=== PATIENT | female | born 1950 | race Caucasian/White ===

== ENCOUNTER 2016-08-02 11:33 | Day surgery (SDC) | payer OTHER ==
[~2016-08-02] VITALS: Ht 154.9 cm; Wt 78.1 kg
[2016-08-02 13:15] VITALS: Ht 154.9 cm; Wt 78.1 kg
[2016-08-02 14:02] VITALS: BP 191/77; PULSE 61; RESP 20
[2016-08-02] MEDS ORDERED: MIDAZOLAM 1 MG/ML 2 ML INJ ONE ×2 (14:57)
[2016-08-02] MEDS ORDERED: FENTAnyl 50 MCG/ML VIAL ONE (14:57)
[2016-08-02 15:19] VITALS: BP 127/61; PULSE 56; RESP 18
--- NOTE | 2016-08-02 20:49 | GILP ---
DATE OF PROCEDURE: NAME OF PROCEDURES 1. Esophagogastroduodenoscopy and biopsy. 2. Colonoscopy, biopsy and polypectomy. SURGEON: Tuyet Bee MD PREOPERATIVE DIAGNOSES: 1. Abdominal pain. 2. Positive occult blood in stool. POSTOPERATIVE DIAGNOSES 1. Small hiatal hernia. 2. Gastroesophageal reflux disease. 3. Gastritis with erosions. 4. Gastric mucosal biopsies were taken for Helicobacter pylori test. 5. Colonoscopy all the way to the cecum. 6. Two sigmoid colon polyps and one of them was removed using a snare and electrocautery and the an other one with biopsy forceps. 7. Internal hemorrhoids. INDICATION FOR THE PROCEDURE: Ms. Shayy Ayala is a 66-year-old female patient who had upper a bdominal pain not responding to therapy. The patient was also noted to have positive occult blood i n stool. Patient was scheduled for endoscopy and colonoscopy for further evaluation. The procedures and possible complications were well explained to the patient, she understood and con sented to the procedures. DESCRIPTION OF PROCEDURE: Under the influence of fentanyl and Versed, the gastroscope was carefully introduced into the esophagus. Under direct vision, it was advanced to the stomach, to the pylorus , into the duodenal bulb and descending duodenum. Findings: Esophagus: The patient had a small hiatal hernia and gastroesophageal reflux disease. Stomach: She had gastritis with erosions. Gastric mucosal biopsies were taken for H. pylori test. Duodenum: Normal. The colonoscope was carefully introduced into the rectum. Under direct vision, it was advanced all the way to the cecum. Findings: The patient had 2 sigmoid colon polyps and one of them was removed using the biopsy force ps and other one with the snare and electrocautery. The patient also had internal hemorrhoids. She tolerated the procedures very well and there was no complication from the procedures. At the en d of the procedures, she was awake with stable vital signs and she was discharged home in the care o f her family. IMPRESSION 1. Small hiatal hernia. 2. Gastroesophageal reflux disease. 3. Gastritis with erosions. 4. Gastric mucosal biopsies were taken for Helicobacter pylori test. 5. Colonoscopy all the way to the cecum. 6. Two sigmoid colon polyps and one of them was removed using the biopsy forceps and the other one with the snare and electrocautery. 7. Internal hemorrhoids. PLAN 1. Omeprazole 40 mg p.o. q.a.m. 2. MiraLax 17 g dissolved in a glass of water p.o. daily. 3. Await histopathology reports. 4. Next screening colonoscopy in 5 years. Dictated By: TUYET LOPEZ/AL Conf#: [id number] DID#: [id number]
== END 2016-08-02 16:26 | disposition home or self-care (01) ==
LOC: GIL 11:33
PROVIDERS: ATTEND Internal Medicine Gastroenterology
DX: R10.9 Unspecified abdominal pain (principal); R19.5 Other fecal abnormalities; K44.9 Diaphragmatic hernia without obstruction or gangrene; K29.70 Gastritis, unspecified, without bleeding; K25.9 Gastric ulcer, unspecified as acute or chronic, without hemorrhage or perforation; D12.5 Benign neoplasm of sigmoid colon; K64.8 Other hemorrhoids
CPT/HCPCS: 43239; 45380; 45385; 87081; 88305; J2250; J3010; Z7610